=== PATIENT | female | born 1960 | race Caucasian/White ===

== ENCOUNTER 2021-08-30 09:33 | Inpatient (IN) | payer OTHER ==
[~2021-08-30] VITALS: Ht 160 cm; Wt 67.2 kg
[2021-08-30] MEDS ORDERED: PROCHLORPERAZINE 10 MG/2 ML VIAL. IVP PRN (10:30)
[2021-08-30] MEDS ORDERED: fentaNYL PF VIAL 100 MCG/2 ML VIAL IVP PRN ×2 (10:30)
[2021-08-30] MEDS ORDERED: IV RINGERS,LACTATED 1000ML 1,000 ML IV SCH (10:30)
[2021-08-30] MEDS ORDERED: MORPHINE SULFATE 2 MG/ML INJ. IVP PRN (10:30)
[2021-08-30] MEDS ORDERED: HYDROmorphone 2 MG/ML VIAL IVP PRN (10:30)
[2021-08-30] MEDS ORDERED: ROCURONIUM 50 MG/5 ML VIAL. ONE (11:10)
[2021-08-30] MEDS ORDERED: PROPOFOL 10 MG/ML (20ML) VIAL. IV ONE (11:10)
[2021-08-30] MEDS ORDERED: LIDOCAINE 2% PF 5 ML VIAL. ONE (11:11)
[2021-08-30] MEDS ORDERED: ONDANSETRON PF 4 MG/2 ML VIAL. ONE (11:11)
[2021-08-30] MEDS ORDERED: DEXAMETHASONE SOD PHOS 4 MG/ML VIAL ONE (11:11)
[2021-08-30] MEDS ORDERED: NEOSTIGMINE METHYLSULFATE 5 MG/5 ML SYRINGE. ONE (11:12)
[2021-08-30] MEDS ORDERED: GLYCOPYRROLATE 1 MG/5 ML VIAL. ONE (11:12)
--- NOTE | 2021-08-30 12:07 | PDOC2 ---
REYNA BANDA CONTINUOUS DRIER OPERATOR 08/30/21 1207: CONSULT Date of Consult Date of Consult DATE: 08/30/21 TIME: 11:59 Reason for Consult Reason for Consult: bowel obstruction related to hernia Referring Physician Referring Physician: [facility] Identification/Chief Complaint Chief Complaint abdominal pain Source Source: Chart review, Patient History of Present Illness Reason for Visit: admitted with abdominal pain, nausea, vomiting, and abdominal distention. Reports started yesterday. ER findings of bowel obstruction related to hernia. She does take Xarelto Past Medical History Cardiovascular: CAD, CHF Pulmonary: COPD Past Surgical History Past Surgical History: Cholecystectomy, Hernia Repair (VIH, umbo), Other (JI, stents) Social History <1 pack per day ALCOHOL: none Drugs: None Lives: Alone Current Medications Current Medications Current Medications Fentanyl Citrate (Fentanyl 2ml Vial) 25 mcg PRN Q5MIN PRN IVP MILD PAIN 1-3; Start 08/30/21 at 10:30; Stop 08/30/21 at 20:00 Fentanyl Citrate (Fentanyl 2ml Vial) 50 mcg PRN Q5MIN PRN IVP MODERATE PAIN 4- 6; Start 08/30/21 at 10:30; Stop 08/30/21 at 20:00 Morphine Sulfate (Morphine Sulfate) 1 mg PRN Q10MIN PRN IVP SEVERE PAIN 7-10; Start 08/30/21 at 10:30; Stop 08/30/21 at 11:44; Status DC Ringer's Solution 1,000 ml @ 30 mls/hr Q24H IV ; Start 08/30/21 at 10:30; Stop 08/30/21 at 22:29 Hydromorphone HCl (Dilaudid) 0.5 mg PRN Q10MIN PRN IVP SEVERE PAIN 7-10, 2nd CHOICE; Start 08/30/21 at 10:30; Stop 08/30/21 at 11:44; Status DC Prochlorperazine Edisylate (Compazine) 5 mg PACU PRN PRN IVP NAUSEA, MRX1; Start 08/30/21 at 10:30; Stop 08/30/21 at 20:00 Propofol (Diprivan) 200 mg STK-MED ONCE IV ; Start 08/30/21 at 11:10; Stop 08/30/21 at 11:10; Status DC Rocuronium [place] (Zemuron) 50 mg STK-MED ONCE .ROUTE ; Start 08/30/21 at 11:10; Stop 08/30/21 at 11:11; Status DC Dexamethasone Sodium Phosphate (Decadron) 4 mg STK-MED ONCE .ROUTE ; Start 08/30/21 at 11:11; Stop 08/30/21 at 11:11; Status DC Ondansetron HCl (Zofran) 4 mg STK-MED ONCE .ROUTE ; Start 08/30/21 at 11:11; Stop 08/30/21 at 11:12; Status DC Lidocaine HCl (Lidocaine Pf 2% Vial) 5 ml STK-MED ONCE .ROUTE ; Start 08/30/21 at 11:11; Stop 08/30/21 at 11:12; Status DC Neostigmine [place] (Neostigmine Methylsulfate) 5 mg STK-MED ONCE .ROUTE ; Start 08/30/21 at 11:12; Stop 08/30/21 at 11:12; Status DC Glycopyrrolate (Robinul) 1 mg STK-MED ONCE .ROUTE ; Start 08/30/21 at 11:12; Stop 08/30/21 at 11:12; Status DC Allergies Allergies: Coded Allergies: adhesive (Verified Allergy, Intermediate, SKIN IRRITATION, 08/30/21) codeine (Verified Allergy, Intermediate, NAUSEA/SWELLING, 08/30/21) hydrocodone (Verified Allergy, Intermediate, NAUSEA/SWELLING, 08/30/21) latex (Verified Allergy, Intermediate, SWELLING/ITCHING, 08/30/21) morphine (Verified Allergy, Intermediate, "TURN LIPS BLUE"SWELLING, 08/30/21) sumatriptan (Verified Allergy, Unknown, SWELLING, 08/30/21) tetracycline (Verified Allergy, Unknown, "NAIL BEDS TURNED BLUE", 08/30/21) chlorpromazine (Verified Adverse Reaction, Severe, PSYCHOSIS, 08/30/21) diazepam (Verified Adverse Reaction, Intermediate, SLEEPINESS, 08/30/21) ROS General: YES: Fatigue, Appetite (loss ) PSYCHOLOGICAL ROS: No: Anxiety, Depression Eyes: No Blurry vision, No Double vision HEENT: No: Heacaches, Sore Throat Hematological and Lymphatic: YES: Bleeding Problems; No: Blood Clots Respiratory: YES: Shortness of breath; No: Cough Cardiovascular: No Chest Pain, No Palpitations Gastrointestinal: Yes Other (see HPI) Genitourinary: YES Other (suprapubic cath) Musculoskeletal: No Joint Swelling, No Muscle Pain Neurological: No Impaired Coord/balance, No Numbness/Tingling Skin: No Pruritus, No Rash Physical Exam General: Cooperative, Other (ill appearing ) HEENT: Atraumatic, Mucous membr. moist/pink Lungs: Other (diminished ) Heart: Regular rate, Normal S1, Normal S2 Abdomen: Other (distended, palpable mass RLQ(unable to reduce)) Extremities: No clubbing, No cyanosis Skin: No rashes, No breakdown Neuro: Normal speech, Sensation intact Vitals VITALS Vital Signs Date Time Temp Pulse Resp B/P (MAP) Pulse Ox O2 Delivery O2 Flow Rate FiO2 08/30/21 11:25 99.9 94 16 121/76 98 Room Air 99.9 Assessment/Plan Assessment/Plan SBO related to hernia, plan repair today on xarleto, will check coags CELESTE JENNINGS MD 08/30/21 1241: CONSULT Assessment/Plan Assessment/Plan Patient seen and examined by me she is currently resting comfortably in bed denies any abdominal pain states that she is been having loose stools. Abdominal exam shows well-healed midline incision baclofen pump in the right upper abdomen. The area of concern by CT scan is below the baclofen pump in the right lower abdomen there is currently no tenderness on palpation in this area on pressing this area the hernia was reduced easily without discomfort. Review of CT scan did show dilated loops of small bowel diffusely with an area concerning at the hernia. She also has significant retained stool in the rectum. Since patient is no longer tender hernias been reduced and her multiple medical problems she is poor surgical candidate. We will work on disimpaction of her constipation and advance diet slowly. Patient also has been on Xarelto. REYNA BANDA APRN Aug 30, 2021 12:07 CELESTE JENNINGS MD Aug 30, 2021 12:41
--- NOTE | 2021-08-30 13:07 | NUR ---
Surgery case cancelled per Dr. Anne. Pt to be admitted to room 426. Report given to DARRIAN Antonio and patient's daughter Erica updated with plan of care. All patient belongings sent with pt at time of admission
[2021-08-30 15:00] VITALS: BP 131/65
[2021-08-30 15:24] LABS: PROTHROMBIN TIME PATIENT 14.7 SEC (11.7-14.0)
--- NOTE | 2021-08-30 17:30 | NUR ---
Patient has had multiple bowel movements, patient refusing most of admission assessment.
--- NOTE | 2021-08-30 17:36 | NUR ---
Care assumed of patient, report received from Ale COLMENARES.
[2021-08-30 19:00] VITALS: BP 128/80
[2021-08-30 23:00] VITALS: BP 110/67
--- NOTE | 2021-08-30 23:20 | NUR ---
Spoke with pedro Craig to restart home meds, orders received for zofran and fentanyl prn. Home Medication list obtained via phone from daughter in law who lives with and cares for patient.
[2021-08-31] MEDS: fentaNYL PF VIAL 100 MCG/2 ML VIAL IVP PRN ×5 (01:37→21:25)
[2021-08-31 03:00] VITALS: BP 121/55
[2021-08-31 07:00] VITALS: BP 129/56
[2021-08-31] MEDS: CELECOXIB 100 MG CAPSULE. PO SCH ×2 (08:57→21:30)
[2021-08-31] MEDS: MIRABEGRON 25 MG TAB.ER.24H PO SCH (08:58)
[2021-08-31] MEDS: FUROSEMIDE 80 MG TABLET. PO SCH (08:58)
[2021-08-31] MEDS: ROFLUMILAST 500 MCG TABLET. PO SCH (08:59)
[2021-08-31] MEDS: PROPRANOLOL 40 MG TABLET. PO SCH ×2 (08:59→20:52)
[2021-08-31] MEDS: OXYBUTYNIN CHLORIDE 5 MG TABLET PO SCH ×2 (08:59→20:54)
[2021-08-31 11:00] VITALS: BP 118/53
--- NOTE | 2021-08-31 11:25 | RAD ---
EXAMINATION: Chest and abdomen radiographs. VIEWS: Single view of the chest and single view abdomen performed. COMPARISON: 06/11/2012 INDICATION: 61 years, Female, shortness of breath. Abdominal pain FINDINGS: CHEST: Normal cardiomediastinal silhouette. No focal consolidation, pleural effusion or pneumothorax. No acute osseous process. Right chest wall pacemaker device. ABDOMEN: Gas filled dilated multiple loops of small bowel in the upper midline and left abdomen, holly ures up to 4.1 cm in diameter. Multiple nondistended loops of small bowel seen in the lower abdomen. Moderate amount of stool in the rectum. No gross pneumoperitoneum. No abnormal intra-abdominal calcif ications. IVC filter and left iliac stent. Stimulator versus baclofen pump device overlies right abdo men. IMPRESSION: 1. Gas-filled dilated loops of small bowel in the upper abdomen. Multiple nondistended loops of small bowel in the lower abdomen. Findings suggesting of small bowel obstruction versus ileus. 2. No acute cardiopulmonary process. Electronically signed by: Donte Thompson MD (08/31/2021 11:23 AM) [id number]
--- NOTE | 2021-08-31 12:32 | HP ---
DATE OF SERVICE: 08/31/2021 ADMIT DATE: 08/30/2021 HISTORY OF PRESENT ILLNESS: The patient is a 61-year-old female patient who was seen in the Emergency Room of [facility] with complaint of nausea, vomiting and diarrhea as well as abdominal cramping and distention, poor appetite with inability to eat. She stated that she has had a little bit of fluid. She stated she is COVID vaccinated. She denied any recent trauma, travel, illness, fever, chest pain, shortness of breath, dysuria, hematuria. She stated that her stools have seemed softer than usual over the last couple of days, though denied any known ill contact. She was extensively investigated in the Emergency Room, and has had both imaging studies and lab work. Her lab work showed that she has leukocytosis with a white cell count 15,500 and thrombocytosis. Her blood gases showed a pH of 7.39, pCO2 of 47, pO2 of 55, bicarbonate 29, oxygen saturation was 88% on room air. Her chemistry showed hyperglycemia, but otherwise the other electrolytes and liver enzymes, kidney function are all within normal range. Her lactic acid was only 0.9. Her urinalysis showed that she has trace leukocyte esterase. She has 3-5 rbc's, 5-10 wbc's and very few bacteria. Her coronavirus by PCR was negative. She had had a chest x-ray which showed the cardiomediastinal silhouette is normal. The pulmonary vasculature is normal. The lungs and pleural margins are clear and the right-sided pacemaker appears normal. She did have a CT scan of the abdomen and pelvis, which basically showed that the evaluation of the solid organ is limited without contrast. The urinary bladder is collapsed around suprapubic catheter and not well evaluated, densities in the floor of the pelvis could be stones injuring the bladder. The rectal vault is distended with air and stool. There is a left inguinal canal hernia containing a segment of the sigmoid colon. The colon is mostly collapsed. There is a right lateral hernia containing the distal ileum. The remaining small bowel is dilated with air and fluid. There is a suture line in the right colon. The appendix is not seen. There is a filter in the IVC; however, the IVC flattened. There is a stent in the left common iliac vein; however, the proximal portion of the stent is flattened and there is calcification within the stent. The liver, spleen and pancreas are normal. Adrenals and kidneys are normal with a small cyst in the left. There is no free air or free fluid. There is no lymphadenopathy. There is no pericolonic inflammation identified. There is impaction of the superior endplate of L3 vertebral body with mild loss of stature. The final impression is that the patient has a high-grade distal small-bowel obstruction that appears to be secondary to right inguinal lateral hernia containing a short segment of the distal ileum. There is a left inguinal canal hernia containing a segment of the sigmoid colon; however, this does not have any CT evidence of obstruction or incarceration. There is fecal impaction with distention of the rectal vault. There is an IVC filter; however, IVC is flattened. This could be secondary to dehydration. There is a left common iliac vein stent; however, this does not appear patent. L3 vertebral body compression fracture, likely old. Therefore, the surgical team was contacted and the patient was transferred to [facility] for definitive surgical repair. PAST MEDICAL HISTORY: Significant for hyperlipidemia, peripheral vascular disease, congestive heart failure, COPD, and seizure disorder. She has also multiple sclerosis. PAST SURGICAL HISTORY: Significant for permanent pacemaker placement. She has a baclofen pump in place. She has history of ventral hernia repair. She has had also a cardiac catheterization and stent deployment to the left iliac artery and IVC filter placement, probably for DVT and PE. FAMILY HISTORY: Noncontributory. SOCIAL HISTORY: She lives alone. She has a motorized wheelchair. She continue to smoke a pack a day and has been a smoker for, according to her, almost all her life. She does not drink alcohol or use recreational drugs. 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 ALLERGIES: SHE IS ALLERGIC TO ADHESIVES, CHLORPROMAZINE HYDROCHLORIDE, CODEINE, DIAZEPAM, HYDROCODONE, LATEX, MORPHINE, SUMATRIPTAN SUCCINATE AND TETRACYCLINE. MEDICATIONS: She was on levofloxacin 750 mg once a day, ipratropium bromide and albuterol sulfate in the form of Combivent Respimat 4 times a day 0.5/3 mg 3 mL solution by nebulizer 4 times a day, albuterol sulfate inhaler every 4-6 hours, rivaroxaban 20 mg once a day, fenofibrate 160 mg once a day, tramadol 100 mg daily, gabapentin 300 mg 3 times a day, duloxetine 60 mg once a day, Lunesta 3 mg at bedtime, furosemide 80 mg once a day. She is on budesonide and formoterol per Symbicort one inhalation twice a day. She is on montelukast 10 mg at bedtime, Daliresp 500 mcg once a day, diphenoxylate and atropine one tablet 4 times a day. Dexilant 60 mg once a day, glimepiride 2 mg once a day and oxybutynin chloride 5 mg twice a day. REVIEW OF SYSTEMS: As per history of present illness. PHYSICAL EXAMINATION: GENERAL: On arrival to the Emergency Room, the patient looks well and is clearly in no apparent respiratory distress. There is no pallor, jaundice, cyanosis or thyromegaly. No jugular venous distention. No limb edema. VITAL SIGNS: Her heart rate on arrival is 84, blood pressure is 133/84, temperature is 97.8, respiratory rate 22, and oxygen saturation is 92% on 2 liters of oxygen. HEAD, EYES, EARS, NOSE, AND THROAT: Normocephalic, atraumatic. NECK: Supple. HEART: Shows normal first and second heart sounds. No gallop, rub or murmur. CHEST: Clear to auscultation. No crepitation or rhonchi. ABDOMEN: Distended with tenderness mostly in the right lower quadrant. There is no guarding or rigidity. No organomegaly. All hernial orifice intact. Bowel sounds normal. NEUROLOGIC: She is awake, alert, responding appropriately. All cranial nerves are intact. She moves her extremities without difficulty. She has had right calcaneal fracture with a splint around her right foot and right leg. LABORATORY AND DIAGNOSTIC DATA: On arrival showed a white cell count of 15,500, hemoglobin 12, hematocrit 37, MCV 95 and platelet count of 648,000 with normal manual differential. Her chemistry showed a serum sodium 140, potassium 4.4, chloride 98, bicarbonate 28, anion gap of 14, BUN 23, creatinine 0.9. Estimated GFR was 63 mL per minute. Her glucose 148. Lactic acid was 0.9, calcium was 10.2. Total bilirubin, AST, ALT, alkaline phosphatase were normal. Troponin I high sensitivity was 10. Total protein was 8.4, albumin was 4.2. Her urinalysis showed that she has moderate amount of bacteria, 5-10 wbc's, 3-5 rbc's and trace leukocyte esterase. She also has a left inguinal canal hernia containing a segment of the sigmoid colon; however, this does not have any CT evidence of obstruction or incarceration. She has fecal impaction with distention of the rectal vault. She also has an IVC filter; however, the IVC is flattened and she has L3 vertebral body compression fracture, likely old. ASSESSMENT AND PLAN: The patient was kept n.p.o., started on IV fluids and IV antibiotic in the form of piperacillin and tazobactam and was transferred to [facility] to consult the surgical team for high-grade distal small-bowel obstruction that appears to be secondary to right lateral hernia containing a short segment of the distal ileum. The patient has a multitude of medical problems including: A. Chronic obstructive pulmonary disease. B. Chronic hypoxic respiratory failure, on 2 liters of oxygen. C. Congestive heart failure. D. Seizure disorder. E. Peripheral vascular disease. F. Congestive heart failure. G. Multiple sclerosis. H. She also continue to smoke a pack a day and has been a smoker, according to her, for almost all her life. PAWEL DR: Shanti TID: [id number]
[2021-08-31 12:42] LABS: BASO # 0.1 x10^3/uL (0.0-0.2); BASO % 1 % (0-3); EOS # 0.1 x10^3/uL (0.0-0.7); EOS % 1 % (0-3); HEMATOCRIT 32.1 % (36.0-47.0); HEMOGLOBIN 10.5 g/dL (12.0-15.5); LYMPH # 2.4 x10^3/uL (1.0-4.8); LYMPH % 15 % (24-48); MEAN CORPUSCULAR HEMOGLOBIN 31 pg (25-35); MEAN CORPUSCULAR HGB CONC 33 g/dL (31-37); MEAN CORPUSCULAR VOLUME 94 fL (79-100); MONO # 1.2 x10^3/uL (0.0-1.1); MONO % 7 % (0-9); NEUT # 12.7 x10^3/uL (1.8-7.7); NEUT % 77 % (31-73); PLATELET COUNT 585 x10^3/uL (140-400); RED BLOOD COUNT 3.43 x10^6/uL (3.50-5.40); RED CELL DISTRIBUTION WIDTH 14.7 % (11.5-14.5); WHITE BLOOD COUNT 16.6 x10^3/uL (4.0-11.0)
[2021-08-31] MEDS: NICOTINE 21MG PATCH. TD SCH (12:49)
[2021-08-31] MEDS: clonazePAM 0.5 MG TABLET PO SCH ×2 (12:50→20:53)
[2021-08-31 13:11] LABS: CALCIUM 8.8 mg/dL (8.5-10.1); CREATININE 0.7 mg/dL (0.6-1.0); GFR 84.8; POTASSIUM 3.3 mmol/L (3.5-5.1)
[2021-08-31 13:16] LABS: ALBUMIN 3.5 g/dL (3.4-5.0); ALBUMIN/GLOBULIN RATIO 0.9 (1.0-1.7); TOTAL BILIRUBIN 0.5 mg/dL (0.2-1.0); TOTAL PROTEIN 7.3 g/dL (6.4-8.2)
[2021-08-31 13:47] LABS: % BASOS 3 % (0-3); % LYMPHS 13 % (24-48); % MONOS 3 % (0-10); % SEGS 81 % (35-66); PLT ESTIMATE INCREASED (ADEQUATE)
[2021-08-31 15:00] VITALS: BP 114/35
[2021-08-31] MEDS: ONDANSETRON PF 4 MG/2 ML VIAL. IVP PRN (15:54)
[2021-08-31] MEDS: RIVAROXABAN 10 MG TABLET. PO SCH (17:29)
--- NOTE | 2021-08-31 17:49 | PN ---
DATE: 08/31/2021 SUBJECTIVE: The patient was seen yesterday in the Emergency Room of [facility] for possible incarcerated hernia. Surgical team was consulted and she was evaluated and apparently by the time the patient arrived here, she was comfortable in bed. Denied any abdominal pain. Stated that she has been having loose stools. Her abdominal exam shows well-healed midline incision. Baclofen pump in the right upper quadrant. Area of concern by the CT scan is below the baclofen pump in the right lower abdomen where there is no tenderness on palpation in this area. On pressing this area, the hernia was reduced easily without discomfort. Her CT scan of the abdomen was reviewed and did show dilated loops of small bowel, diffusely with an area of concerning at the hernia. She also has significant retained stool in the rectum. Since the patient is no longer tender. She was having tender hernia and her hernia has been reduced and she has a multitude of medical problems. She is a poor surgical candidate and the surgical team started to work on disimpacting and to advance the diet slowly. She is also on Xarelto. PHYSICAL EXAMINATION: GENERAL: When I saw her today, she was resting slightly propped up in bed, in no apparent respiratory distress. There was no pallor, jaundice, cyanosis. No lymphadenopathy, no thyromegaly, no jugular venous distention. No lower limb edema. VITAL SIGNS: Her heart rate was 98, blood pressure was 129/56, temperature was 97.8, respiratory rate was 20 and oxygen saturation was 98% on 3 liters of oxygen. HEAD, EYES, EARS, NOSE AND THROAT: Normocephalic and atraumatic. NECK: Supple. HEART: Normal first and second heart sounds. No gallop, rub or murmur. CHEST: Clear to auscultation, no crepitation or rhonchi. ABDOMEN: Distended, soft. There is no tenderness in the right lower quadrant. There is a baclofen pump in the right upper quadrant. She has a suprapubic catheter in place. NEUROLOGIC: She was awake, alert, responding appropriately. All cranial nerves intact. She moves all extremities without difficulty. She does have right calcaneal fracture and has a splint to her right foot and leg. LABORATORY DATA: Her prothrombin time and INR was 14.7 and 1.2. ASSESSMENT: In summary, this patient came with what seemed to be bowel obstruction; however, the hernia was easily reduced and she has had no more tenderness. She stated that she is having multiple loose bowel movements. PLAN: My plan is to continue all her medications and I will repeat her lab work as well as x-ray of her chest and KUB and if need be, you might have to do a digital disimpaction. PAWEL/DOUGLAS/SALLIE DR: Shanti TID: [id number]
--- NOTE | 2021-08-31 18:00 | NUR ---
Pt with behaviors this am. She was rude to staff and putting on her call light multiple times after she was educated chief hydroelectric station operator light use. She kept asking for medication that was not yet due and pain medication that was nt due. She was educated related to these issues. She told this senior grant writer she wanted to leave. I told he that I could not stop her and if she wanted to go she could but it would be against medical advice. Pt daughter call and spoke with me and she was informed on pt behavior. She said that she is not surprised and that she can be "trouble" at times. She also told me that pt takes Klonopin BID and also is a heavy smoker. I went and put new sheets on her bed, repositioned her and spoke to Dr. Saleh to get orders for Nicotine patch and Klonopin 1mg BID. He was in agreement. Orders were started and pt has been calm.
[2021-08-31 19:15] VITALS: BP 135/77
[2021-08-31] MEDS: GABAPENTIN 300 MG CAPSULE. PO SCH (20:53)
[2021-08-31] MEDS: MONTELUKAST SODIUM 10 MG TABLET. PO SCH (20:53)
[2021-08-31] MEDS: levETIRAcetam 500 MG TABLET PO SCH (20:53)
[2021-08-31] MEDS: traMADol 50 MG TABLET PO SCH (20:54)
[2021-08-31] MEDS: DULoxetine HCL 30 MG CAPSULE.DR PO SCH (20:54)
[2021-08-31] MEDS ORDERED: IPRA4AER IH (21:00)
[2021-08-31] MEDS ORDERED: BUDE10.2 IH (21:00)
[2021-08-31] MEDS ORDERED: NON FORMULARY ITEM (Ipratropium/Albuterol Sulfate (Combivent Respimat Inhal) 2 INH) IH SCH (21:00)
[2021-08-31] MEDS ORDERED: clonazePAM 0.5 MG TABLET PO SCH (21:00)
[2021-08-31] MEDS ORDERED: NON FORMULARY ITEM (Budesonide/Formoterol Fumarate (Symbicort 160-4.5 Mcg Inhaler) 2 PUFF) IH SCH (21:00)
[2021-08-31] MEDS ORDERED: ANTI-COAG MONITOR BY PHARMACY. MC PRN (21:15)
[2021-08-31] MEDS: IPRATRPIUM/ALBUTEROL 0.5/2.5MG 3 ML NEBU. NEB SCH (22:00)
[2021-08-31] MEDS: BUDESONIDE 0.5 MG/2 ML NEBU. NEB SCH (22:00)
[2021-08-31 22:51] VITALS: BP 116/65
[2021-09-01] MEDS: ONDANSETRON PF 4 MG/2 ML VIAL. IVP PRN ×2 (00:25→08:47)
[2021-09-01] MEDS: fentaNYL PF VIAL 100 MCG/2 ML VIAL IVP PRN ×3 (00:25→20:49)
[2021-09-01 03:20] VITALS: BP 112/71
[2021-09-01] MEDS: BUDESONIDE 0.5 MG/2 ML NEBU. NEB SCH ×2 (06:59→20:30)
[2021-09-01] MEDS: IPRATRPIUM/ALBUTEROL 0.5/2.5MG 3 ML NEBU. NEB SCH ×4 (06:59→20:30)
[2021-09-01 07:00] VITALS: BP 103/62
[2021-09-01] MEDS: OXYBUTYNIN CHLORIDE 5 MG TABLET PO SCH ×2 (08:48→20:07)
[2021-09-01] MEDS: PROPRANOLOL 40 MG TABLET. PO SCH ×2 (08:48→20:07)
[2021-09-01] MEDS: MIRABEGRON 25 MG TAB.ER.24H PO SCH (08:48)
[2021-09-01] MEDS: FUROSEMIDE 80 MG TABLET. PO SCH (08:49)
[2021-09-01] MEDS: ROFLUMILAST 500 MCG TABLET. PO SCH (08:49)
[2021-09-01] MEDS: clonazePAM 0.5 MG TABLET PO SCH ×3 (08:49→20:06)
[2021-09-01] MEDS: CELECOXIB 100 MG CAPSULE. PO SCH ×2 (08:49→20:06)
[2021-09-01] MEDS: NICOTINE 21MG PATCH. TD SCH (08:50)
--- NOTE | 2021-09-01 09:30 | RAD ---
EXAMINATION: Abdominal radiograph. VIEWS: 1 COMPARISON: 08/31/2021 INDICATION: 61 years, Female, small bowel obstruction versus ileus. FINDINGS/ IMPRESSION: Essentially unchanged gas filled mildly dilated multiple loops of small bowel in the upper abdomen wi th nondistended bowel loops seen within the pelvis. Differential again includes partial small bowel o bstruction versus ileus. No gross pneumoperitoneum. No other changes since prior exam. Electronically signed by: Donte Thompson MD (09/01/2021 9:27 AM) [id number]
--- NOTE | 2021-09-01 10:32 | PN ---
DATE: 09/01/2021 SUBJECTIVE: The patient is resting almost flat in bed, in no apparent respiratory distress. She is awake and alert. On questioning her, she stated that she continued to have nausea, but no vomiting. Denied any abdominal pain. Denied any chills, rigors or fever. PHYSICAL EXAMINATION: GENERAL: When I examined her, she looked well and was clearly in no apparent distress. She was pale. Not jaundiced or cyanosed. No thyromegaly. No jugular venous distention. No limb edema. VITAL SIGNS: Her heart rate was 77, blood pressure was 112/71, temperature was 97.9, respiratory rate was 18 and oxygen saturation was 99% on 3 liters of oxygen. HEAD, EYES, EARS, NOSE, AND THROAT: Normocephalic, atraumatic. NECK: Supple. HEART: Showed normal first and second heart sounds, no gallop or murmur. CHEST: Showed central trachea, equal bilateral chest, air entry, vesicular breath sounds. I could not really appreciate any crepitation or rhonchi. ABDOMEN: Distended, soft. She has a baclofen pump in the right upper quadrant. There is no tenderness. No guarding or rigidity. No organomegaly. Bowel sounds are normal. RECTAL: I did actually a rectal exam, it showed that the rectal vault was empty. NEUROLOGIC: She is awake, alert, responding appropriately. All cranial nerves intact. She moves upper extremities to much greater extent than the lower extremities. She has multiple sclerosis with functional paraplegia. She has neurogenic bladder requiring suprapubic catheter. Her intake and output was incompletely recorded. LABORATORY DATA: As of yesterday, her white cell count was 16,600; hemoglobin 10.5; hematocrit 32; MCV 94; and platelet count of 585,000. Her chemistry showed a serum sodium 139, potassium 3.3, chloride 99, bicarbonate 29, anion gap of 11, BUN 13, and creatinine 0.7. Estimated GFR was 84 mL per minute. Her glucose was 74 and calcium was 8.8. Total bilirubin, AST, ALT, and alkaline phosphatase were normal. Her total protein 7.3, albumin 3.5. Her prothrombin time and INR slightly elevated. ASSESSMENT: The patient was seen in the Emergency Room of [facility] with bowel obstruction; however, her hernia was easily reduced and she has no more tenderness in the area below the baclofen pump. The patient is passing gas and had had multiple bowel movements; however, her KUB yesterday showed that the patient has gas-filled dilated multiple loops of small bowel in the upper midline and left abdomen measuring up to 4.1 cm in diameter. She also has multiple nondistended loops of the small bowel seen in the lower abdomen. There is moderate amount of stool in the rectum. No gross pneumoperitoneum. No abnormal intra-abdominal calcification. IVC filter and left iliac stent stimulator versus baclofen pump device overlies right abdomen. Her chest x-ray was mostly unremarkable. PLAN: My plan is obvious to continue with current medication. She is on a clear liquid diet. I will repeat her KUB today to see whether there is improvement in her bowel loops and if there is an improvement, obviously we will advance her diet and hopefully discharge her home tomorrow. IRA/SALLIE DR: Shanti TID: [id number]
[2021-09-01 11:00] VITALS: BP 88/44
[2021-09-01 14:55] VITALS: BP 103/60
[2021-09-01] MEDS: RIVAROXABAN 10 MG TABLET. PO SCH (17:51)
[2021-09-01 19:00] VITALS: BP 101/60
[2021-09-01] MEDS: levETIRAcetam 500 MG TABLET PO SCH (20:05)
[2021-09-01] MEDS: GABAPENTIN 300 MG CAPSULE. PO SCH (20:06)
[2021-09-01] MEDS: DULoxetine HCL 30 MG CAPSULE.DR PO SCH (20:06)
[2021-09-01] MEDS: MONTELUKAST SODIUM 10 MG TABLET. PO SCH (20:07)
[2021-09-01] MEDS: SENNOSIDES/DOCUSATE 8.6/50MG TABLET. PO PRN (20:07)
[2021-09-01] MEDS: traMADol 50 MG TABLET PO SCH (20:08)
[2021-09-01 22:58] VITALS: BP 108/63
[2021-09-02 02:53] VITALS: BP 91/68
[2021-09-02 07:00] VITALS: BP 106/58
[2021-09-02 07:46] LABS: ALBUMIN 2.9 g/dL (3.4-5.0); CALCIUM 8.7 mg/dL (8.5-10.1); CREATININE 0.5 mg/dL (0.6-1.0); POTASSIUM 3.1 mmol/L (3.5-5.1); TOTAL BILIRUBIN 0.3 mg/dL (0.2-1.0); TOTAL PROTEIN 5.9 g/dL (6.4-8.2)
[2021-09-02 07:47] LABS: HEMATOCRIT 31.5 % (36.0-47.0); HEMOGLOBIN 10.3 g/dL (12.0-15.5); RED BLOOD COUNT 3.36 x10^6/uL (3.50-5.40); RED CELL DISTRIBUTION WIDTH 14.5 % (11.5-14.5); WHITE BLOOD COUNT 8.7 x10^3/uL (4.0-11.0)
[2021-09-02] MEDS: BUDESONIDE 0.5 MG/2 ML NEBU. NEB SCH ×2 (08:24→19:38)
[2021-09-02] MEDS: IPRATRPIUM/ALBUTEROL 0.5/2.5MG 3 ML NEBU. NEB SCH ×4 (08:24→19:38)
[2021-09-02] MEDS: MIRABEGRON 25 MG TAB.ER.24H PO SCH (08:55)
[2021-09-02] MEDS: NICOTINE 21MG PATCH. TD SCH (08:55)
[2021-09-02] MEDS: CELECOXIB 100 MG CAPSULE. PO SCH ×2 (08:56→19:45)
[2021-09-02] MEDS: clonazePAM 0.5 MG TABLET PO SCH ×3 (08:56→19:43)
[2021-09-02] MEDS: FUROSEMIDE 80 MG TABLET. PO SCH (08:57)
[2021-09-02] MEDS: ROFLUMILAST 500 MCG TABLET. PO SCH (08:57)
[2021-09-02] MEDS: PROPRANOLOL 40 MG TABLET. PO SCH ×2 (08:57→21:00)
[2021-09-02] MEDS: OXYBUTYNIN CHLORIDE 5 MG TABLET PO SCH ×2 (08:57→19:44)
--- NOTE | 2021-09-02 10:22 | NUR ---
SW following. Discussed with RN, pt from home alone, 3L (uses oxygen at home), full liquid diet. Pt having some GI workup today, and if negative can discharge home per Dr. Saleh. RN advised no SW needs at this time. SW will continue to follow.
[2021-09-02] MEDS: POTASSIUM CHLORIDE 40 MEQ in IV DEXTROSE 5% 1,000 ML IV SCH ×2 (10:26→20:19)
[2021-09-02 11:00] VITALS: BP 91/59
--- NOTE | 2021-09-02 13:12 | PDOC2 ---
GI CONSULT Date of Service: DATE: 09/02/21 TIME: 12:54 Reason For Consult: persistent dilated small bowel ileus vs sbo HPI: HPI: 61 y/o female w/ MS sent from [facility] to [facility] w/ SBO related to hernia - reduced, did not required surgery. Currently, she denies n/v and abdominal pain. Stooled yesterday. Tolerating liquid diet - didn't eat breakfast because she's not a breakfast eater. Wants to go home. We are asked to see re: abnormal xray findings of essentially unchanged gas filled mildly dilated multiple loops of small bowel in the upper abdomen. CT at [facility] also noted fecal impaction. She denies reflux/heartburn, dysphagia, hematemesis, hematochezia, melena, and weight loss. H?o alternating bowel pattern - no stool for several days, then significant stooling for a day or so. Past EGD and colonoscopy ~10 years ago at , thinks showed polyps - recalls no recommendations made re: follow-up scopes. S/p cholecystectomy - does not recall stones. Denies liver, pancreas, and PUD history. On Celebrex here, usually also Tramadol but this was held. H/o Factor V Leiden on Xarelto. H&P indicates she takes Dexilant. PMH: PMH: MS, PVD w/ stent, CHF, COPD, seizure disorder, HLD, Factor V Leiden, DVT pacemaker, baclofen pump, cardiac cath, cholecystectomy, hysterectomy, C-sect ion, IVC filter, VIH repair, umbilical hernia repair, SPC FH: Family History: No pertinent hx (denies GI cancers) Social History: Smoke: <1 pack per day (0.5-1 ppd) Drugs: Marijuana (regularly) ROS: GEN: Denies fevers, chills, sweats HEENT: Denies blurred vision, sore throat CV: Denies chest pain RESP: Denies shortness of air, cough GI: Per HPI : Denies hematuria, dysuria ENDO: Denies weight changes NEURO: Denies confusion, dizziness MSK: Denies weakness, joint pain/swelling SKIN: Denies jaundice, pruritus Vitals: Vitals: Vital Signs Date Time Temp Pulse Resp B/P (MAP) Pulse Ox O2 Delivery O2 Flow Rate FiO2 09/02/21 11:00 98.0 68 16 91/59 (70) 97 Nasal Cannula 3.0 98.0 Labs: Labs: Laboratory Tests Test 09/02/21 06:45 White Blood Count 8.7 x10^3/uL (4.0-11.0) Red Blood Count 3.36 x10^6/uL (3.50-5.40) Hemoglobin 10.3 g/dL (12.0-15.5) Hematocrit 31.5 % (36.0-47.0) Mean Corpuscular Volume 94 fL (79-100) Mean Corpuscular Hemoglobin 31 pg (25-35) Mean Corpuscular Hemoglobin Concent 33 g/dL (31-37) Red Cell Distribution Width 14.5 % (11.5-14.5) Platelet Count 475 x10^3/uL (140-400) Sodium Level 140 mmol/L (136-145) Potassium Level 3.1 mmol/L (3.5-5.1) Chloride Level 97 mmol/L (98-107) Carbon Dioxide Level 37 mmol/L (21-32) Anion Gap 6 (6-14) Blood Urea Nitrogen 6 mg/dL (7-20) Creatinine 0.5 mg/dL (0.6-1.0) Estimated GFR (Cockcroft-Gault) 125.0 BUN/Creatinine Ratio 12 (6-20) Glucose Level 85 mg/dL (70-99) Calcium Level 8.7 mg/dL (8.5-10.1) Total Bilirubin 0.3 mg/dL (0.2-1.0) Aspartate Amino Transf (AST/SGOT) 27 U/L (15-37) Alanine Aminotransferase (ALT/SGPT) 20 U/L (14-59) Alkaline Phosphatase 59 U/L (46-116) Total Protein 5.9 g/dL (6.4-8.2) Albumin 2.9 g/dL (3.4-5.0) Albumin/Globulin Ratio 1.0 (1.0-1.7) Allergies: Coded Allergies: adhesive (Verified Allergy, Intermediate, SKIN IRRITATION, 08/30/21) codeine (Verified Allergy, Intermediate, NAUSEA/SWELLING, 08/30/21) hydrocodone (Verified Allergy, Intermediate, NAUSEA/SWELLING, 08/30/21) latex (Verified Allergy, Intermediate, SWELLING/ITCHING, 08/30/21) morphine (Verified Allergy, Intermediate, "TURN LIPS BLUE"SWELLING, 08/30/21) sumatriptan (Verified Allergy, Intermediate, SWELLING, 08/30/21) tetracycline (Verified Allergy, Intermediate, "NAIL BEDS TURNED BLUE", 08/30/21) chlorpromazine (Verified Adverse Reaction, Severe, PSYCHOSIS, 08/30/21) diazepam (Verified Adverse Reaction, Intermediate, SLEEPINESS, 08/30/21) Medications: Current Medications Medications (Trade) Dose Ordered Sig/Geraldo Route PRN Reason Start Time Stop Time Status Last Admin Dose Admin Potassium Chloride 40 meq/ Dextrose 1,020 ml @ 100 mls/hr [id number] IV 09/02/21 09:30 09/02/21 10:26 Imaging: Imaging: CXR/KUB 08/31 IMPRESSION: 1. Gas-filled dilated loops of small bowel in the upper abdomen. Multiple nondistended loops of small bowel in the lower abdomen. Findings suggesting of small bowel obstruction versus ileus. 2. No acute cardiopulmonary process. KUB 09/01 IMPRESSION: Essentially unchanged gas filled mildly dilated multiple loops of small bowel in the upper abdomen with nondistended bowel loops seen within the pelvis. Diff erential again includes partial small bowel obstruction versus ileus. No gross pneumoperitoneum. No other changes since prior exam. PE: GEN: NAD HEENT: Atraumatic, PERRL LUNGS: CTAB HEART: RRR ABD: BS+ but a little quiet, soft, non-distended, non-tender, SPC EXTREMITY: No edema SKIN: No rashes, no jaundice NEURO/PSYCH: A & O 3 A/P: A/P: SBO/hernia - resolved/reduced Normocytic anemia Abnormal imaging w/ dilated SB ?GERD - history suggests on PPI at home CRC screen - reports colonoscopy w/ polyps ~10 years ago S/p cholecystectomy H/o Factor V Leiden on Xarelto -- Tolerating liquid diet, stooling, and denies abd pain and n/v. Will review any recommendations for finding of dilated SB on x-ray w/ Dr. Dale still. Check anemia parameters for completeness. Resume PPI. Address constipation as indicated. ARNEL BIGGS Sep 02, 2021 13:12
[2021-09-02] MEDS ORDERED: BISACODYL 10 MG SUPP.RECT. PR PRN (13:15)
[2021-09-02] MEDS: fentaNYL PF VIAL 100 MCG/2 ML VIAL IVP PRN ×2 (14:23→19:58)
[2021-09-02 15:00] VITALS: BP 116/63
[2021-09-02 15:15] LABS: CREATININE 0.7 mg/dL (0.6-1.0); GFR 84.8; POTASSIUM 3.1 mmol/L (3.5-5.1)
[2021-09-02] MEDS: RIVAROXABAN 10 MG TABLET. PO SCH (16:29)
--- NOTE | 2021-09-02 18:45 | NUR ---
pt stated having pain at iv site. assessed iv site, there was no redness or swelling. The line flushed well with good blood return & patent. slowed IV potassium down to 50ml/hr. gave pt ice pack to place on iv site.
[2021-09-02 19:00] VITALS: BP 112/68
[2021-09-02] MEDS ORDERED: SODIUM CHLORIDE 0.65% NASAL SPRAY 45ML BOTTLE. NS PRN (19:30)
[2021-09-02] MEDS: GABAPENTIN 300 MG CAPSULE. PO SCH (19:43)
[2021-09-02] MEDS: levETIRAcetam 500 MG TABLET PO SCH (19:43)
[2021-09-02] MEDS: DULoxetine HCL 30 MG CAPSULE.DR PO SCH (19:44)
[2021-09-02] MEDS: MONTELUKAST SODIUM 10 MG TABLET. PO SCH (19:44)
[2021-09-02] MEDS: SENNOSIDES/DOCUSATE 8.6/50MG TABLET. PO PRN (19:44)
[2021-09-02 23:00] VITALS: BP 93/57
--- NOTE | 2021-09-02 23:06 | PN ---
DATE: 09/02/2021 SUBJECTIVE: The patient is resting, slightly propped up in bed, sleeping comfortably. On questioning her, she denied any complaint, in particular, has no further episodes of nausea. Did have a bowel movement; however, repeat KUB continued to show essentially unchanged gas filled mild dilated multiple loops of small bowel in the upper abdomen with nondistended bowel loops seen within the pelvis. Differential again includes partial small-bowel obstruction versus ileus. No gross pneumoperitoneum. No other changes since prior exam. PHYSICAL EXAMINATION: GENERAL: When I examined her, she looked well and was clearly in no apparent respiratory distress. She was pale, not jaundiced or cyanosed, no lymphadenopathy, no thyromegaly, no jugular venous distention. No limb edema. VITAL SIGNS: Her heart rate was 79, blood pressure is 106/58, temperature was 97.7, respiratory rate was 16 and oxygen saturation was 98% on 3 liters of oxygen by nasal cannula. HEAD, EYES, EARS, NOSE, AND THROAT: Normocephalic, atraumatic. NECK: Supple. HEART: Normal first and second heart sounds. No gallop, rub or murmur. CHEST: Clear to auscultation, no crepitation or rhonchi. ABDOMEN: Distended, soft, nontender, no guarding or rigidity. No organomegaly. All hernial orifices intact. Bowel sounds are normal. NEUROLOGIC: She was awake, alert, responding appropriately. All her cranial nerves intact. She moves upper extremities without difficulty. She has paraplegia due to longstanding multiple sclerosis Does have a neurogenic bladder, requiring suprapubic catheter. Her intake was 640, output was 1700. LABORATORY DATA: As of this morning, her white cell count was 8700, hemoglobin 10, hematocrit 31, MCV 94 and platelet count 475,000. Serum sodium 140, potassium 3.1, chloride 97, bicarbonate 37, anion gap of 6, BUN 6, creatinine 0.5. Estimated GFR was 125 mL per minute. Her glucose was 85, calcium was 8.7. Total bilirubin, AST, ALT, alkaline phosphatase were normal. Total protein 5.9, albumin was 2.9. Her prothrombin time and INR slightly elevated. ASSESSMENT AND PLAN: Resistant paralytic ileus versus partial obstruction. The patient has hypokalemia that will be replenished and I have consulted Dr. Poe and no other barium swallow and follow through is indicated or whether the patient can be discharged home. I did discontinue her tramadol as it might be contributing to her paralytic ileus. PAWEL/REMY/AYAAN DR: Shanti TID: [id number]
[2021-09-03 03:02] VITALS: BP 89/57
[2021-09-03] MEDS: POTASSIUM CHLORIDE 40 MEQ in IV DEXTROSE 5% 1,000 ML IV SCH (05:36)
[2021-09-03 07:00] VITALS: BP 109/59
[2021-09-03] MEDS ORDERED: PANTOPRAZOLE 40 MG TABLET.DR. PO SCH (07:30)
[2021-09-03] MEDS: BUDESONIDE 0.5 MG/2 ML NEBU. NEB SCH (07:54)
[2021-09-03] MEDS: IPRATRPIUM/ALBUTEROL 0.5/2.5MG 3 ML NEBU. NEB SCH ×2 (07:54→12:17)
[2021-09-03] MEDS: MIRABEGRON 25 MG TAB.ER.24H PO SCH (09:24)
[2021-09-03] MEDS: PROPRANOLOL 40 MG TABLET. PO SCH (09:24)
[2021-09-03] MEDS: CELECOXIB 100 MG CAPSULE. PO SCH (09:24)
[2021-09-03] MEDS: ROFLUMILAST 500 MCG TABLET. PO SCH (09:24)
[2021-09-03] MEDS: OXYBUTYNIN CHLORIDE 5 MG TABLET PO SCH (09:25)
[2021-09-03] MEDS: FUROSEMIDE 80 MG TABLET. PO SCH (09:25)
[2021-09-03] MEDS: clonazePAM 0.5 MG TABLET PO SCH ×2 (09:25→14:49)
[2021-09-03] MEDS: NICOTINE 21MG PATCH. TD SCH (09:25)
[2021-09-03] MEDS ORDERED: POTASSIUM CHLORIDE 20 MEQ TABLET.ER. PO ONE ×3 (10:00→12:00)
[2021-09-03 10:27] LABS: CALCIUM 8.6 mg/dL (8.5-10.1); CREATININE 0.6 mg/dL (0.6-1.0); GFR 101.3; POTASSIUM 3.9 mmol/L (3.5-5.1)
--- NOTE | 2021-09-03 10:35 | PDOC ---
Date of Service: DATE: 09/03/21 TIME: 10:31 Subjective: Subjective: Feels fine. No abdominal pain, nausea, or vomiting. Stooled a lot yesterday after suppository. Wants to go home. Ate dinner last night - can't remember what - didn't eat breakfast again today because she doesn't like eating breakfast. Objective: Vital Signs: Vital Signs Date Time Temp Pulse Resp B/P (MAP) Pulse Ox O2 Delivery O2 Flow Rate FiO2 09/03/21 09:24 69 109/59 09/03/21 07:58 97 Nasal Cannula 3.0 09/03/21 07:00 97.5 16 97.5 Labs: Laboratory Tests Test 09/02/21 14:10 09/03/21 09:46 Sodium Level 139 mmol/L 137 mmol/L Potassium Level 3.1 mmol/L 3.9 mmol/L Chloride Level 95 mmol/L 96 mmol/L Carbon Dioxide Level 39 mmol/L 35 mmol/L Anion Gap 5 6 Blood Urea Nitrogen 5 mg/dL 7 mg/dL Creatinine 0.7 mg/dL 0.6 mg/dL Estimated GFR (Cockcroft-Gault) 84.8 101.3 Glucose Level 138 mg/dL 112 mg/dL Calcium Level 9.0 mg/dL 8.6 mg/dL PE: GEN: NAD - was sleeping LUNGS: clear, NC 3L HEART: RRR ABD: soft, non-tender, quiet gurgles NEURO/PSYCH: A & O 3 A/P: SBO/hernia, abnormal imaging w/ dialted SB ALIREZA - h/o Factor V on Xarelto - last scopes ~10 years ago -- Tolerating diet and stooling. DC per primary. Continue PPI. Can follow-up as outpt to discuss scopes - imaging prep for colonoscopy would be challenging. Justicifation of Admission Dx: Justifications for Admission: Justification of Admission Dx: Yes ARNEL BIGGS Sep 03, 2021 10:35
[2021-09-03 11:00] VITALS: BP 101/56
--- NOTE | 2021-09-03 12:32 | NUR ---
SW following. Discussed with RN, discharge order for home with self care. Pt needs stretcher transportation home. Transportation arranged with [facility] for 1530. Pt's caregiver coming around 1400 to get patient ready to go home. RN notified. No further SW needs.
[2021-09-03 15:00] VITALS: BP 107/72
--- NOTE | 2021-09-03 16:59 | NUR ---
Pt. discharged home via EMS, verbalized understanding of discharge instructions.
--- NOTE | 2021-09-03 21:44 | PN ---
DATE: 09/03/2021 SUBJECTIVE: The patient is resting flat in bed, in no apparent respiratory distress. She denied any nausea or vomiting. Denied any abdominal pain. She has multiple loose bowel movements. Nursing staff did not voice any concerns, told she had an uneventful night. PHYSICAL EXAMINATION: GENERAL: When I examined her, she looked well and was clearly in no apparent respiratory distress. No pallor, jaundice, cyanosis or thyromegaly. No jugular venous distention. No limb edema. VITAL SIGNS: Her heart rate was 69, blood pressure was 109/69, temperature was 97.5, respiratory rate was 16 and oxygen saturation was 97% on 3 liters of oxygen. HEAD, EYES, EARS, NOSE AND THROAT: Normocephalic and atraumatic. NECK: Supple. HEART: Showed normal first and second heart sounds. No gallop, rub or murmur. CHEST: Clear to auscultation, no crepitation or rhonchi. ABDOMEN: Distended, soft, and nontender. No guarding or rigidity. No organomegaly. All hernial orifice intact. Bowel sounds normal. NEUROLOGIC: She was awake, alert, responding appropriately. Cranial nerves intact. She moves upper extremities without difficulty. She has paraplegia due to longstanding multiple sclerosis. She has neurogenic bladder requiring suprapubic catheter. Her intake over the last 24 hours was 600, output was 2500. LABORATORY DATA: Today's labs are still pending at the time of this dictation. As of yesterday, her serum sodium was 139, potassium 3.1, chloride 95, bicarbonate 39, anion gap of 5, BUN 5, and creatinine 0.7. Estimated GFR was 85 mL per minute. Her glucose 138, calcium was 9. Her white cell count was 8700, hemoglobin 10, hematocrit 32, MCV 94 and platelet count 475,000. ASSESSMENT: 1. Persistent paralytic ileus versus partial obstruction. The patient, however, is asymptomatic. She denied any nausea or vomiting. Denied abdominal pain. She has multiple loose bowel movements. 2. Hypokalemia, which I started yesterday on D5 with 40 mEq. Today's labs are still pending at the time of this dictation. PLAN: To await the results of the lab work and if potassium has normalized, I will discharge her home. PAWEL/TERESA/XAVI DR: PAWEL/nica TID: [id number]
== END 2021-09-03 17:00 | disposition home or self-care (01) | DRG 394 ==
LOC: OPSVCIP 09:33 → 4 NORTH 14:01
PROVIDERS: ADMIT Internal Medicine; ATTEND Internal Medicine
DX: K40.30 Unilateral inguinal hernia, with obstruction, without gangrene, not specified as recurrent (principal); K56.0 Paralytic ileus; D68.51 Activated protein C resistance; J96.11 Chronic respiratory failure with hypoxia; G82.20 Paraplegia, unspecified; E87.6 Hypokalemia; D72.829 Elevated white blood cell count, unspecified; D75.839 Thrombocytosis, unspecified; E78.5 Hyperlipidemia, unspecified; F12.90 Cannabis use, unspecified, uncomplicated; F17.210 Nicotine dependence, cigarettes, uncomplicated; G35 Multiple sclerosis; G40.909 Epilepsy, unspecified, not intractable, without status epilepticus; I25.10 Atherosclerotic heart disease of native coronary artery without angina pectoris; I50.9 Heart failure, unspecified; I73.9 Peripheral vascular disease, unspecified; J44.9 Chronic obstructive pulmonary disease, unspecified; K56.41 Fecal impaction; Z79.01 Long term (current) use of anticoagulants; Z90.49 Acquired absence of other specified parts of digestive tract; Z90.710 Acquired absence of both cervix and uterus; Z95.0 Presence of cardiac pacemaker; Z96.89 Presence of other specified functional implants; Z79.899 Other long term (current) drug therapy; Z88.8 Allergy status to other drugs, medicaments and biological substances; Z20.822 Contact with and (suspected) exposure to COVID-19; D64.9 Anemia, unspecified
CPT/HCPCS: 36415; 71045; 74018; 80048; 80053; 82607; 83540; 83550; 85007; 85025; 85027; 85610; 94640; 94760; J1100; J2405; J2704; J2710; J3010; J3480; J3490; J7060; G0378; J7626